=== PATIENT | female | born 1985 | race Caucasian/White ===

== ENCOUNTER 2019-09-22 19:05 | Emergency (ER) | payer OTHER, MEDICAID ==
--- NOTE | 2019-09-22 20:08 | EDM.PDOC ---
ED HPI GENERAL MEDICAL PROBLEM - General Chief Complaint: Chest Pain Stated Complaint: TIGHTEN IN THE CHEST Time Seen by Provider: 09/22/19 20:08 Source of Information: Reports: Patient History Limitations: Reports: No Limitations - History of Present Illness INITIAL COMMENTS - FREE TEXT/NARRATIVE: 33-year-old female with no significant health problems presents to the emergency department with left anterior chest pain. She initially had it last night when she was left side-lying and improved with switching to her right side. Later in the night it recurred and again improved with right side-lying. Today she was at the dinner table and noted pain left anterior chest in a sitting position. Her pain resolved but she decided to come to the ER. During the ride here she h ad a recurrence of the pain. She denied any radiation of the pain, shortness of breath, diaphoresis or nausea. She has no history of hypertension, hyperlipidemia, diabetes mellitus or significant family history of premature cardiovascular disease. She is not a smoker. She had a miscarriage in July. She has no history of VTE. She denies chills or fever. She denies any GI problems. 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: Dermatologic History: Reports: Other (See Below) Other Dermatologic History: hives - Infectious Disease History Infectious Disease History: Reports: Chicken Pox Social & Family History - Family History Family Medical History: Unobtainable - Tobacco Use Smoking Status *Q: Never Smoker Second Hand Smoke Exposure: No - Caffeine Use Caffeine Use: Reports: Coffee, Soda - Recreational Drug Use Recreational Drug Use: No ED ROS GENERAL - Review of Systems Review Of Systems: See Below Constitutional: Denies: Fever, Chills, Night Sweats, Diaphoresis HEENT: Reports: No Symptoms Respiratory: Denies: Shortness of Breath, Wheezing, Pleuritic Chest Pain Cardiovascular: Reports: Chest Pain. Denies: Edema GI/Abdominal: Reports: No Symptoms. Denies: Nausea Neurological: Reports: No Symptoms Psychiatric: Reports: No Symptoms ED EXAM, GENERAL - Physical Exam Exam: See Below Exam Limited By: No Limitations General Appearance: Alert, WD/WN, No Apparent Distress Nose: Normal Inspection Throat/Mouth: Normal Inspection, Normal Lips Neck: Normal Inspection, Supple Respiratory/Chest: No Respiratory Distress, Lungs Clear, Normal Breath Sounds Cardiovascular: Normal Peripheral Pulses, No Gallop, No Murmur GI/Abdominal: Normal Bowel Sounds, Soft, Non-Tender Extremities: Non-Tender Neurological: Alert, Oriented Course - Vital Signs Last Recorded V/S: Last Vital Signs Temp 36.8 C 09/22/19 21:40 Pulse 74 09/22/19 21:40 Resp 12 09/22/19 21:40 BP 106/79 09/22/19 21:40 Pulse Ox 95 09/22/19 21:40 - Orders/Labs/Meds Orders: Active Orders 24 hr Category Date Time Status EKG Documentation Completion [RC] ASDIRECTED Care 09/22/19 20:12 Active Chest 1V Frontal [CR] Stat Exams 09/22/19 20:12 Taken Labs: Laboratory Tests 09/22/19 09/22/19 09/22/19 Range/Units 20:14 20:27 20:27 WBC 8.0 (4.5-11.0) K/uL RBC 4.27 (3.30-5.50) M/uL Hgb 13.0 (12.0-15.0) g/dL Hct 39.9 (36.0-48.0) % MCV 93 (80-98) fL MCH 30 (27-31) pg MCHC 33 (32-36) % Plt Count 284 (150-400) K/uL Neut % (Auto) 61 (36-66) % Lymph % (Auto) 27 (24-44) % [place] % (Auto) 9 H (2-6) % Eos % (Auto) 3 (2-4) % Baso % (Auto) 0 (0-1) % Sodium 141 (140-148) mmol/L Potassium 3.6 (3.6-5.2) mmol/L Chloride 105 (100-108) mmol/L Carbon Dioxide 27 (21-32) mmol/L Anion Gap 9.0 (5.0-14.0) mmol/L BUN 12 D (7-18) mg/dL Creatinine 0.8 (0.6-1.0) mg/dL Est Cr Clr Drug Dosing 92.76 mL/min Estimated GFR (MDRD) > 60 (>60) Glucose 95 (74-106) mg/dL Calcium 9.0 (8.5-10.1) mg/dL Troponin I < 0.017 (0.000-0.056) ng/mL NT-Pro-B Natriuret Pep (5-125) pg/mL 09/22/19 09/22/19 Range/Units 20:27 22:04 WBC (4.5-11.0) K/uL RBC (3.30-5.50) M/uL Hgb (12.0-15.0) g/dL Hct (36.0-48.0) % MCV (80-98) fL MCH (27-31) pg MCHC (32-36) % Plt Count (150-400) K/uL Neut % (Auto) (36-66) % Lymph % (Auto) (24-44) % [place] % (Auto) (2-6) % Eos % (Auto) (2-4) % Baso % (Auto) (0-1) % Sodium (140-148) mmol/L Potassium (3.6-5.2) mmol/L Chloride (100-108) mmol/L Carbon Dioxide (21-32) mmol/L Anion Gap (5.0-14.0) mmol/L BUN (7-18) mg/dL Creatinine (0.6-1.0) mg/dL Est Cr Clr Drug Dosing mL/min Estimated GFR (MDRD) (>60) Glucose (74-106) mg/dL Calcium (8.5-10.1) mg/dL Troponin I < 0.017 (0.000-0.056) ng/mL NT-Pro-B Natriuret Pep 64 (5-125) pg/mL Meds: Medications Discontinued Medications Generic Name Dose Route Start Last Admin Trade Name Freq PRN Reason Stop Dose Admin Aspirin 324 mg 09/22/19 20:11 09/22/19 20:23 Aspirin PO 09/22/19 20:12 324 mg ONETIME ONE Administration Departure - Departure Time of Disposition: 22:45 Disposition: 20 Condition: Good Clinical Impression: Chest pain, atypical Instructions: Nonspecific Chest Pain, Adult Referrals: Kisha Leiva CNM [Primary Care Provider] - Forms: ED Department Discharge Additional Instructions: Tylenol or ibuprofen as needed for chest pain. Follow-up with your primary care provider. Return to the ER if you have concerns or if your symptoms worsen. Sepsis Event Note (ED) - Evaluation Sepsis Screening Result: No Definite Risk - Focused Exam Vital Signs: Vital Signs Temp Pulse Resp BP Pulse Ox 09/22/19 21:40 36.8 C 74 12 106/79 95 09/22/19 19:31 35.7 C L 81 20 122/81 98 09/22/19 19:28 35.7 C L 81 20 122/81 98 - My Orders Last 24 Hours: My Active Orders 09/22/19 20:12 EKG Documentation Completion [RC] ASDIRECTED Chest 1V Frontal [CR] Stat - Assessment/Plan Last 24 Hours: My Active Orders 09/22/19 20:12 EKG Documentation Completion [RC] ASDIRECTED Chest 1V Frontal [CR] Stat
[2019-09-22] MEDS ORDERED: Aspirin 81 MG Tab.Chew PO ONE (20:11)
[2019-09-22 21:41] VITALS: BP 106/79; PULSE 74
--- NOTE | 2019-09-24 09:50 | CR ---
CHEST: Portable 09/22/2019 at 8:36 PM CLINICAL HISTORY:Chest pain COMPARISON:None FINDINGS: The heart size, pulmonary vascularity and hilar structures are normal. No infiltrate effusion or pneumothorax is seen. IMPRESSION: No acute cardiopulmonary process.
== END 2019-09-22 22:52 | disposition home or self-care (01) ==
LOC: JP.ED 19:05
DX: R07.89 Other chest pain (principal); Z91.040 Latex allergy status; Z91.013 Allergy to seafood; Z79.899 Other long term (current) drug therapy
CPT/HCPCS: 36415; 71045; 80048; 83880; 84484; 85025; 93005; 99285; A9270; 93010; 99284

== ENCOUNTER 2021-04-03 03:44 | Inpatient (IN) | payer OTHER, MEDICAID ==
[2021-04-03 04:58] LABS: CORONAVIRUS COVID-19 NAA NEGATIVE (NEGATIVE)
[2021-04-03] MEDS ORDERED: Sodium Chloride 0.9% 10 ML Syringe FLUSH PRN ×2 (05:16→05:20)
[2021-04-03] MEDS ORDERED: Oxytocin 10 Units/1 ML SDV IV ONE (05:20)
[2021-04-03] MEDS ORDERED: Lidocaine 1% 50 ML MDV INJECT ONE (05:20)
[2021-04-03] MEDS ORDERED: Lactated Ringers 1,000 ML IV SCH (05:30)
[2021-04-03] MEDS ORDERED: Lactated Ringers 1,000 ML IV ONE (13:10)
[2021-04-03] MEDS ORDERED: fentaNYL 100 MCG/2 ML SDV IVPUSH ONE (13:34)
[2021-04-03] MEDS ORDERED: ePHEDrine 50 MG/ML SDV IV PRN (13:48)
[2021-04-03] MEDS ORDERED: Ropivacaine 100 ML EPIDUR SCH ×2 (14:30→15:00)
[2021-04-03] MEDS ORDERED: Naloxone 0.4 MG/ML SDV IVPUSH PRN (15:00)
[2021-04-03] MEDS ORDERED: Acetaminophen 325 MG Tab PO PRN (15:40)
[2021-04-03] MEDS ORDERED: Docusate Sodium 100 MG Cap PO PRN (15:40)
[2021-04-03] MEDS ORDERED: Ibuprofen 800 MG Tab PO PRN (15:40)
[2021-04-03] MEDS ORDERED: Oxytocin 10 Units/1 ML SDV IM PRN (15:40)
[2021-04-03] MEDS ORDERED: Lanolin 100% Cream 40 GM Tube TOP PRN (17:45)
[2021-04-03] MEDS ORDERED: Witch Hazel Medicated Pads 100/Jar TOP PRN (17:45)
[2021-04-03] MEDS ORDERED: Acetaminophen 325 MG Tab, 50 Tab Bulk Bottle PO PRN (17:50)
[2021-04-03] MEDS ORDERED: Benzocaine 20% Top Spray 56 GM Bottle TOP PRN (17:51)
[2021-04-03] MEDS ORDERED: Ibuprofen 200 MG Tab, 24 Tab Bulk Bottle PO PRN (17:51)
[2021-04-04] MEDS ORDERED: Ropivacaine 100 ML ONE (06:52)
[2021-04-04 16:46] VITALS: BP 114/72; PULSE 71
== END 2021-04-04 20:00 | disposition home or self-care (01) | DRG 807 ==
LOC: JP.OBCHECK 03:44 → JP.OB 03:58 → OBSVTOIN 03:58 → INTOOBSV 05:16 → JP.MS 19:00
PROVIDERS: ADMIT Obstetrics & Gynecology; ATTEND Obstetrics & Gynecology
PROC: 10E0XZZ Delivery of Products of Conception, External Approach (ICD-10-PCS; principal; 2021-04-03)
PROC: 10H07YZ Insertion of Other Device into Products of Conception, Via Natural or Artificial Opening (ICD-10-PCS; 2021-04-03)
PROC: 3E0R3BZ Introduction of Anesthetic Agent into Spinal Canal, Percutaneous Approach (ICD-10-PCS; 2021-04-03)
DX: O80 Encounter for full-term uncomplicated delivery (principal); Z37.0 Single live birth; Z3A.39 39 weeks gestation of pregnancy; Z20.822 Contact with and (suspected) exposure to COVID-19; Z91.040 Latex allergy status; Z91.013 Allergy to seafood
CPT/HCPCS: 0241U; 36415; 80305-QW; 84112; 85025; 85027; 86850; 86900; 86901; 99211; A9270-GY; J2590; J2795; J7120